=== PATIENT | male | born 1950 | race Caucasian/White ===

== ENCOUNTER 2017-08-27 18:16 | Emergency (ER) | payer MEDICARE, OTHER ==
[2017-08-27 19:28] LABS: ADD UMIC YES; UR ASCORBIC ACID NEGATIVE (NEGATIVE); UR BACTERIA FEW /HPF (NONE SEEN); UR BILIRUBIN (Dip) NEGATIVE (NEGATIVE); UR BLOOD (Dip) 1+ mg/dL (NEGATIVE); UR CLARITY CLEAR (CLEAR); UR COLOR YELLOW (YELLOW); UR GLUCOSE (Dip) NEGATIVE (NEGATIVE); UR KETONES (Dip) NEGATIVE (NEGATIVE); UR LEUKOCYTE ESTERASE (Dip) 3+ Leu/ul (NEGATIVE); UR NITRITE (Dip) NEGATIVE (NEGATIVE); UR RBC 4 /HPF (0-5); UR SPECIFIC GRAVITY (Dip) 1.013 (1.003-1.030); UR TOTAL PROTEIN (Dip) NEGATIVE (NEGATIVE); UR UROBILINOGEN (Dip) NEGATIVE (NEGATIVE); UR WBC 30 /HPF (0-5)
[2017-08-27] MEDS: CIPROFLOXACIN 500 MG TAB PO (19:42)
[2017-08-27] MEDS: LIDOCAINE 1% (MDV) 10 ML INJ INFIL (19:57)
[2017-08-27] MEDS: IBUPROFEN 600 MG TAB PO (19:57)
[2017-08-27] MEDS: CEFTRIAXONE 1 GM INJ IM (19:57)
== END 2017-08-27 20:05 | disposition home or self-care (01) ==
LOC: FTE 18:16
DX: R30.0 Dysuria (principal)
CPT/HCPCS: 81001; 87086; 96372; 99284-25

== ENCOUNTER 2017-10-15 23:09 | Emergency (ER) | payer MEDICARE, OTHER ==
[2017-10-16] MEDS: ACETAMINOPHEN 325 MG TAB PO (00:06)
[2017-10-16 00:10] LABS: URINE BLOOD (Dip) POC Trace-intact (NEGATIVE); URINE GLUCOSE (Dip) POC Negative (NEGATIVE); URINE KETONES (Dip) POC Negative (NEGATIVE); URINE LEUKOCYTE EST (Dip) POC Trace (NEGATIVE); URINE NITRITE (Dip) POC Negative (NEGATIVE); URINE TOTAL PROTEIN POC Negative (NEGATIVE)
[2017-10-16 00:10] LABS: URINE PH (Dip) POC 7.5 (5.0-8.5)
== END 2017-10-16 00:41 | disposition home or self-care (01) ==
LOC: FTE 23:09
DX: N30.00 Acute cystitis without hematuria (principal)
CPT/HCPCS: 81003; 99283